=== PATIENT | female | born 1975 | race Caucasian/White ===

== ENCOUNTER 2016-07-27 12:28 | Emergency (ER) | payer OTHER ==
[2016-07-27] MEDS ORDERED: HYDROcodone/APAP 5/325 MG 1 TAB TABLET PO ONE (13:34)
[2016-07-27] MEDS ORDERED: FLUCONAZOLE 100 MG CAPSULE PO ONE ×2 (14:15→14:19)
--- NOTE | 2016-07-27 14:49 | ER PHYSICIAN DOCUMENTATION ---
Physician Documentation [facility] Name:Beatriz Solorio Age:41 yrs Sex:Female :1975 Arrival Date:07/27/2016 Time:12:28 Bed3 Private MD: Skip Chadwick Disposition: 07/27/16 14:13 Discharged to Home/Self Care. Impression: Candidal Vulvovaginitis, Pelvic Pain. - Condition is Good. - Discharge Instructions: PELVIC PAIN, Unknown Cause, VAGINITIS, Rose. - Prescriptions for Hydrocodone- Acetaminophen 5-325 mg Oral Tablet - take 1 tablet by ORAL route every 6 hours As needed; 20 tablet. - Medical Reconciliation form form. - Follow up: Private Physician; When: As needed; Reason: Worsening of condition. - Problem is new. - Symptoms have improved. HPI: 07/27 14:07 This 41 yrs old Female presents to ER via Private Vehicle with complaints of sc Pelvic Pain. 14:07 The patient presents with pelvic pain, vaginal bleeding that is light, spotting. Onset: sc The symptoms/episode began/occurred 1 month(s) ago. Modifying factors: the symptoms are aggravated by drive up from [place], one month s/p hysterectomy. Associated signs and symptoms: Pertinent positives: vaginal bleeding, vaginal discharge. Ectopic Risk: No risk factors noted. The patient is not sexually active. Historical: - Allergies: meloxicam; - Home Meds: 1. Lexapro Oral - PMHx: None; - PSHx: Hysterectomy; - Ebola Screening: : Patient negative for fever greater than or equal to 101.5 degrees Fahrenheit, and additional compatible Ebola Virus Disease symptoms. Patient denies exposure to infectious person. Patient denies travel to an Ebola-affected area in the 21 days before illness onset. No symptoms or risks identified at this time. . - Immunization history: Flu Vaccine < 1 year. - Social history: Smoking status: Patient states was never smoker of tobacco. Patient/guardian denies using alcohol, street drugs, IV drugs, marijuana. ROS: 14:08 Positive for pelvic pain, vaginal bleeding, vaginal discharge. sc 14:08 Constitutional: Negative for fever, chills, and weight loss. sc Eyes: Negative for injury, pain, redness, and discharge. ENT: Negative for injury, pain, and discharge. Neck: Negative for injury, pain, and swelling. Cardiovascular: Negative for chest pain, palpitations, and edema. Respiratory: Negative for shortness of breath, cough, wheezing, and pleuritic chest pain. Abdomen/GI: Negative for abdominal pain, nausea, vomiting, diarrhea, and constipation. Back: Negative for injury and pain. MS/Extremity: Negative for injury and deformity. Skin: Negative for injury, rash, and discoloration. 14:08 Neuro: Negative for headache, weakness, numbness, tingling, and seizure. Exam: Constitutional: This is a well developed, well nourished patient who is awake, alert, and in no acute distress. Head/Face: Normocephalic, atraumatic. Eyes: Pupils equal round and reactive to light, extra-ocular motions intact. Lids and lashes normal. Conjunctiva and sclera are non-icteric and not injected. Cornea within normal limits. Periorbital areas with no swelling, redness, or edema. Neck: Trachea midline, no thyromegaly or masses palpated, and no cervical lymphadenopathy. Supple, full range of motion without nuchal rigidity, or vertebral point tenderness. No meningismus. Chest/axilla: Normal chest wall appearance and motion. Nontender with no deformity. No lesions are appreciated. Cardiovascular: Regular rate and rhythm with a normal S1 and S2. No gallops, murmurs, or rubs. Normal PMI, no JVD. No pulse deficits. Respiratory: Lungs have equal breath sounds bilaterally, clear to auscultation and percussion. No rales, rhonchi or wheezes noted. No increased work of breathing, no retractions or nasal flaring. Back: No spinal tenderness. No costovertebral tenderness. Full range of motion. Skin: Warm, dry with normal turgor. Normal color with no rashes, no lesions, and no evidence of cellulitis. 14:09 Neuro: Awake and alert, GCS 15, oriented to person, place, time, and situation. sc Cranial nerves II-XII grossly intact. Motor strength 5/5 in all extremities. Sensory grossly intact. Cerebellar exam normal. Normal gait. 14:09 Abdomen/GI: Inspection: abdomen appears normal, Bowel sounds: normal, Palpation: abdomen is soft and non-tender. 14:09 : CVA tenderness, is absent, Pelvic Exam: Speculum exam: scant bleeding, no cervicitis, discharge, white. Vital Signs: 12:40 BP 112 / 79; Pulse 85; Resp 16; Temp 98.6; Pulse Ox 94% ; Weight 60.33 kg; Height 5 ft. jt 4 in. (162.56 cm); Pain 8/10; 13:58 BP 116 / 72; Pulse 76; Resp 16; Pulse Ox 94% on R/A; Pain 3/10; lc 14:30 Pain 3/10; lc 12:40 Body Mass Index 22.83 (60.33 kg, 162.56 cm) jt MDM: 12:35 Patient medically screened. sc 14:10 Differential diagnosis: rose infection, menometrorrhagia, urinary tract infection. ri Data reviewed: vital signs, nurses notes, lab test result(s), and as a result, I will discharge patient. Counseling: I had a detailed discussion with the patient and/or guardian regarding: the historical points, exam findings, and any diagnostic results supporting the discharge/admit diagnosis, lab results, the need for outpatient follow up, to return to the emergency department if symptoms worsen or persist or if there are any questions or concerns that arise at home. Physician consultation: Papo Jimenez MD was called at 14:12, was contacted at 14:12, regarding patient's condition. 07/27 13:37 Order name: WET PREP; Complete Time: 13:45 [facility] 07/27 12:54 Order name: Urine Dip; Complete Time: 13:23 ri Dispensed Medications: 13:23 Drug: HYDROcodone-acetaminophen 5 mg-325 mg 1 tabs; Route: PO; 13:57 Follow up: Response: Pain is decreased 14:08 Drug: Fluconazole 150 mg; Route: PO; 14:45 Follow up: Response: No adverse reaction Point of Care Testing: Urine Dip: 13:23 pH: 5; ; Specific [place]: 1.015; Ketones: Negative; Glucose: Negative; Protein: jt Negative; Leukocytes: Negative; Nitrite: Negative ; Blood: Negative; Bilirubin: Negative ; Urobilinogen: Normal Signatures: Siri Bazan RN RN Arlene Burnette RN RN [facility] Skip Vitale MD MD ri
--- NOTE | 2016-07-27 14:49 | ER NURSING DOCUMENTATION ---
Nurse's Notes [facility] Name:Beatriz Solorio Age:41 yrs Sex:Female :1975 Arrival Date:07/27/2016 Time:12:28 Bed3 Private MD: Diagnosis:Candidal Vulvovaginitis;Pelvic Pain Presentation: 07/27 12:30 Acuity: NICANOR 3 tg 12:36 Presenting complaint: Patient states: that she drove up from [facility] to and now sc1 is having pelvic pain. States she had a hysterectomy 1 month ago. States I'm having "a little bit of spotting", also. Transition of care: patient was not received from another setting of care. Notified ED Physician of patient's arrival and CC Dr. Vitale notified. 12:36 Method Of Arrival: Private Vehicle [facility] Triage Assessment: 12:38 General: Appears uncomfortable, well developed, well nourished, well groomed, Behavior sc1 is cooperative, pleasant. Pain: Complains of pain in suprapubic area, right inguinal area and left inguinal area. Historical: - Allergies: meloxicam; - Home Meds: 1. Lexapro Oral - PMHx: None; - PSHx: Hysterectomy; - Ebola Screening: : Patient negative for fever greater than or equal to 101.5 degrees Fahrenheit, and additional compatible Ebola Virus Disease symptoms. Patient denies exposure to infectious person. Patient denies travel to an Ebola-affected area in the 21 days before illness onset. No symptoms or risks identified at this time. . - Immunization history: Flu Vaccine < 1 year. - Social history: Smoking status: Patient states was never smoker of tobacco. Patient/guardian denies using alcohol, street drugs, IV drugs, marijuana. Screenin:39 Infectious Disease Risk None. Abuse screen: Denies threats or abuse. Nutritional ri1 screening: No deficits noted. Assessment: 14:46 GI: Abdomen is non- distended Bowel sounds present X 4 quads. Abd is soft Abdomen is lc tender to palpation in right lower quadrant. Vital Signs: 12:40 BP 112 / 79; Pulse 85; Resp 16; Temp 98.6; Pulse Ox 94% ; Weight 60.33 kg; Height 5 ft. jt 4 in. (162.56 cm); Pain 8/10; 13:58 BP 116 / 72; Pulse 76; Resp 16; Pulse Ox 94% on R/A; Pain 3/10; lc 14:30 Pain 3/10; lc 12:40 Body Mass Index 22.83 (60.33 kg, 162.56 cm) ED Course: 12:29 Patient arrived in ED. jt 12:30 Alek Noonan RN is Primary Nurse. tg 12:30 Triage completed. tg 12:34 Skip Vitale MD is Attending Physician. ri 12:36 Arlene Burnette RN is Primary Nurse. sc1 12:39 Notified ED Physician of patient's arrival and chief complaint. Dr. Vitale notified. sc1 Allergy Band Placed Arm band placed on Bed in low position Call Light in Reach Gowned HOB Elevated Side rails up x1. 13:00 Valuables Remains with patient Patient has correct armband on for positive lc identification. Placed in gown. Bed in low position. Call light in reach. Side rails up X 1. 13:30 Assist Provider Assist provider with pelvic exam: Set up pelvic tray. Performed by natalie Vitale MD Specimens sent to lab. Patient tolerated well. Administered Medications: 13:23 Drug: HYDROcodone-acetaminophen 5 mg-325 mg 1 tabs; Route: PO; 13:57 Follow up: Response: Pain is decreased 14:08 Drug: Fluconazole 150 mg; Route: PO; 14:45 Follow up: Response: No adverse reaction Point of Care Testing: Urine Dip: 13:23 pH: 5; ; Specific [place]: 1.015; Ketones: Negative; Glucose: Negative; Protein: jt Negative; Leukocytes: Negative; Nitrite: Negative ; Blood: Negative; Bilirubin: Negative ; Urobilinogen: Normal Outcome: 14:13 Discharge ordered by . ri 14:30 Discharged to home ambulatory, with friend. 14:30 Condition: stable 14:30 Discharge Assessment: Patient awake, alert and oriented x 3. No cognitive and/or functional deficits noted. Patient verbalized understanding of disposition instructions. 14:30 Discharge instructions given to patient, Instructed on discharge instructions, follow up and referral plans. medication usage, Demonstrated understanding of instructions, medications, Prescriptions given X 1. 14:48 Patient left the ED. 07/28 14:46 Discharge F/U Call: Unable to reach: no answer Signatures: Alek Noonan RN RN tg Siri Bazan, TANMAY RN Arlene Uriarte RN RN sc1 Skip Vitale MD MD sc Tennant, Joanne jt
== END 2016-07-27 14:49 | disposition home or self-care (01) ==
LOC: ER 12:28
DX: B37.3 Candidiasis of vulva and vagina (principal); Z98.890 Other specified postprocedural states
CPT/HCPCS: 87210; 99284

== ENCOUNTER 2016-08-21 12:13 | Emergency (ER) | payer OTHER ==
[2016-08-21] MEDS ORDERED: KETOROLAC TROMETHAMINE 30 MG/ML VIAL ONE (12:59)
[2016-08-21] MEDS ORDERED: ONDANSETRON ODT 4 MG TAB.RAPDIS ONE (13:00)
--- NOTE | 2016-08-21 13:22 | ER PHYSICIAN DOCUMENTATION ---
Physician Documentation [facility] Name:Beatriz Solorio Age:41 yrs Sex:Female :1975 Arrival Date:08/21/2016 Time:12:13 Bed3 Private MD: Chris Brown Disposition: 08/21 14:00 Chart complete. tl1 Disposition: 08/21/16 13:09 Discharged to Home/Self Care. Impression: Acute Back Pain. - Condition is Good. - Discharge Instructions: BACK PAIN (Acute or Chronic). - Prescriptions for Robaxin- 750 - take 1 tablet by ORAL route 3 times per day; 30 tablet. Encinal 7.5- 325 mg Oral Tablet - take 1 tablet by ORAL route every 6 hours As needed; 20 tablet. Zofran 4 mg Oral Tablet - take 1-2 tablet by ORAL route every 4-6 hours As needed; 10 tablet. - Medical Reconciliation form form. - Follow up: Private Physician; When: 4- 6 days; Reason: Recheck today's complaints, Continuance of care. - Problem is new. - Symptoms have improved. HPI: 12:30 This 41 yrs old Female presents to ER via Private Vehicle with complaints of tl1 Low Back Pain. 12:30 The patient presents with pain that is chronic. The symptoms are located in the low tl1 back. The pain radiates down both lower extremities, to lower buttocks. Onset: The symptoms/episode began/occurred gradually, 2 hour(s) ago. Modifying factors: the patient symptoms are aggravated by bending, movement. Associated signs and symptoms: Pertinent negatives: constipation, dysuria, fever, incontinence, numbness, tingling, urinary retention, weakness. Severity of symptoms: At their worst the symptoms were moderate, in the emergency department the symptoms are unchanged. The patient has experienced similar episodes in the past. She says she has a herniated disc treated with intermittent steroid injections. She reports that her insurance company allows the injections less frequently than she needs and it has been several months since her last one. She can't think of any particular precipitant this time. She lives in [facility] [address] and is up here visiting. Denies f/c/s/n/w/t/incontinence, h/o malignancy.. Historical: - Allergies: meloxicam; - Home Meds: 1. levothyroxine oral 2. Lexapro Oral 3. trazodone Oral - PMHx: chronic back pain; lumbar herniation; ARTHRITIS; ovarian cysts; - PSHx: Appendectomy; HYSTERECTOMY; - Tetanus: < 10 years. - Ebola Screening: : Patient negative for fever greater than or equal to 101.5 degrees Fahrenheit, and additional compatible Ebola Virus Disease symptoms. Patient denies exposure to infectious person. Patient denies travel to an Ebola-affected area in the 21 days before illness onset. No symptoms or risks identified at this time. . - Immunization history: Pneumococcal vaccine is not up to date, Patient has never been vaccinated Flu Vaccine < 1 year. - Social history: Smoking status: Patient states was never smoker of tobacco. Patient/guardian denies using alcohol, marijuana. ROS: 12:45 Back: Positive for decreased range of motion, pain at rest, Negative for injury or tl1 acute deformity. 12:45 All other systems are negative. Exam: 12:45 Constitutional: This is a well developed, well nourished patient who is awake, alert, tl1 and in no acute distress. 12:45 Head/Face: Normocephalic, atraumatic. tl1 12:45 Cardiovascular: Rate: normal. 12:45 Respiratory: Respirations: normal. 12:45 Abdomen/GI: Palpation: abdomen is soft and non-tender. 12:45 Back: pain, that is moderate, of the lumbar area, ROM is decreased, vertebral tenderness, is appreciated at L2, L3, L4 and L5, muscle spasm, is not present, Straight leg raises: right lower extremity illicits pain, at 30 degrees, left lower extremity illicits pain, at 30 degrees. 12:45 Skin: Exam negative for acute changes. 12:45 Neuro: Orientation: is normal, Mentation: is normal, Cranial nerves: grossly normal, Motor: moves all fours, strength is 5/5 in the right foot and left foot, Sensation: light touch sense is normal. Vital Signs: 12:43 BP 124 / 82; Pulse 121; Resp 16; Temp 97.8(O); Pulse Ox 95% on R/A; Weight 60.33 kg; sj Height 5 ft. 4 in. (162.56 cm); Pain 7/10; 13:20 Pain 1/10; sj 12:43 Body Mass Index 22.83 (60.33 kg, 162.56 cm) sj MDM: 12:39 Patient medically screened. tl1 13:00 Data reviewed: vital signs, nurses notes, and as a result, I will discharge patient. tl1 Counseling: I had a detailed discussion with the patient and/or guardian regarding: the historical points, exam findings, and any diagnostic results supporting the discharge/admit diagnosis, the need for outpatient follow up, to return to the emergency department if symptoms worsen or persist or if there are any questions or concerns that arise at home. Response to treatment: the patient's symptoms have markedly improved after treatment, and as a result, I will discharge patient. Dispensed Medications: 12:55 Drug: Dilaudid 2 mg; Route: IM; Site: right gluteus; sj 13:19 Follow up: Response: Pain is decreased sj 12:56 Drug: Toradol 30 mg; Route: IM; Site: left gluteus; sj 13:20 Follow up: Response: Pain is decreased sj 12:56 Drug: Zofran 4 mg; Route: PO; sj 13:20 Follow up: Response: Nausea is decreased sj Signatures: Chris Mancilla MD MD tl1 Nani Baeza
--- NOTE | 2016-08-21 13:22 | ER NURSING DOCUMENTATION ---
Nurse's Notes [facility] Name:Beatriz Solorio Age:41 yrs Sex:Female :1975 Arrival Date:08/21/2016 Time:12:13 Bed3 Private MD: Diagnosis:Acute Back Pain Presentation: 08/21 12:37 Presenting complaint:. Transition of care: patient was not received from another setting of care. Notified ED Physician of patient's arrival and CC Dr. Mancilla notified. 12:37 Acuity: NICANOR 3 sj 12:37 Acuity: NICANOR 4 sj 12:37 Method Of Arrival: Private Vehicle sj Triage Assessment: 12:42 General: Appears distressed, Behavior is cooperative. Pain: Complains of pain in lumbar sj area. Neuro: Level of Consciousness is awake, alert, Oriented to person, place, time, event, Reports paresthesias in bilateral upper thighs. Cardiovascular: Capillary refill < 3 seconds. Respiratory: Respiratory effort is even, unlabored, Respiratory pattern is regular. Historical: - Allergies: meloxicam; - Home Meds: 1. levothyroxine oral 2. Lexapro Oral 3. trazodone Oral - PMHx: chronic back pain; lumbar herniation; ARTHRITIS; ovarian cysts; - PSHx: Appendectomy; HYSTERECTOMY; - Tetanus: < 10 years. - Ebola Screening: : Patient negative for fever greater than or equal to 101.5 degrees Fahrenheit, and additional compatible Ebola Virus Disease symptoms. Patient denies exposure to infectious person. Patient denies travel to an Ebola-affected area in the 21 days before illness onset. No symptoms or risks identified at this time. . - Immunization history: Pneumococcal vaccine is not up to date, Patient has never been vaccinated Flu Vaccine < 1 year. - Social history: Smoking status: Patient states was never smoker of tobacco. Patient/guardian denies using alcohol, marijuana. Screenin:44 Infectious Disease Risk None. Abuse screen: Denies threats or abuse. Denies injuries sj from another. Nutritional screening: No deficits noted. Assessment: 12:44 Reassessment: No changes from previously documented assessment. sj Vital Signs: 12:43 BP 124 / 82; Pulse 121; Resp 16; Temp 97.8(O); Pulse Ox 95% on R/A; Weight 60.33 kg; sj Height 5 ft. 4 in. (162.56 cm); Pain 7/10; 13:20 Pain 1/10; sj 12:43 Body Mass Index 22.83 (60.33 kg, 162.56 cm) ED Course: 12:17 Patient arrived in ED. jl 12:37 Nani Baeza is Primary Nurse. sj 12:38 Triage completed. sj 12:39 Chris Mancilla MD is Attending Physician. tl1 12:44 Valuables Remains with patient Bed in low position. Call light in reach. Side rails up sj X 1. Administered Medications: 12:55 Drug: Dilaudid 2 mg; Route: IM; Site: right gluteus; sj 13:19 Follow up: Response: Pain is decreased sj 12:56 Drug: Toradol 30 mg; Route: IM; Site: left gluteus; sj 13:20 Follow up: Response: Pain is decreased sj 12:56 Drug: Zofran 4 mg; Route: PO; sj 13:20 Follow up: Response: Nausea is decreased Outcome: 13:09 Discharge ordered by . tl1 13:20 Discharged to home ambulatory, with family. sj 13:20 Condition: improved 13:20 Instructed on discharge instructions, follow up and referral plans. medication usage, Demonstrated understanding of instructions, medications, Prescriptions given X 3. 13:21 Patient left the ED. 08/22 09:21 Discharge F/U Call: Unable to reach: no answer st Signatures: Alethea Kirkland, RN RN Chris Sams MD MD tl1 Nani Baeza Jeff jl
== END 2016-08-21 13:22 | disposition home or self-care (01) ==
LOC: ER 12:13
DX: M54.5 Low back pain (principal); M79.604 Pain in right leg; M79.605 Pain in left leg; M51.26 Other intervertebral disc displacement, lumbar region; G89.29 Other chronic pain; Z79.899 Other long term (current) drug therapy
CPT/HCPCS: 96372; 99283; J1170; J1885

== ENCOUNTER 2016-09-07 18:46 | Emergency (ER) | payer OTHER ==
[2016-09-07] MEDS ORDERED: KETOROLAC TROMETHAMINE 30 MG/ML VIAL ONE (19:32)
[2016-09-07] MEDS ORDERED: ONDANSETRON HCL 4 MG/2 ML VIAL ONE (19:32)
[2016-09-07] MEDS ORDERED: MORPHINE SULFATE 4 MG/ML SYR ONE (19:32)
--- NOTE | 2016-09-07 20:03 | ER PHYSICIAN DOCUMENTATION ---
Physician Documentation [facility] Name:Beatriz Solorio Age:41 yrs Sex:Female :1975 Arrival Date:09/07/2016 Time:18:46 Bed3 Private MD: Romain Martinez Disposition: 09/07/16 19:55 Discharged to Home/Self Care. Impression: Pelvic Pain, Abdominal Pain, Right Lower Quadrant. - Condition is Good. - Discharge Instructions: PELVIC PAIN, Unknown Cause. - Prescriptions for ketorolac 10 mg Oral tablet - take 1 tablet by ORAL route every 6 hours not to exceed 40 mg in 24hrs; 30 tablet. - Medical Reconciliation form form. - Follow up: Papo Jimenez MD; When: 4- 6 days; Reason: Continuance of care. Follow up: Milton Sheriff MD; When: As needed; Reason: Continuance of care. - Problem is an ongoing problem. - Symptoms have improved. HPI: 09/07 19:22 This 41 yrs old Female presents to ER via Walk In with complaints of Pelvic jm Pain. 19:22 The patient presents with abdominal pain right lower quadrant. Onset: The jm symptoms/episode began/occurred 4 week(s) ago. The symptoms do not radiate. Associated signs and symptoms: Pertinent negatives: fever, nausea, vomiting. The symptoms are described as constant, sharp. Severity of pain: in the emergency department the pain is unchanged. This patient does not have any risk factors related to abdominal pain. The patient has experienced similar episodes in the past, and the symptoms today are exactly the same, to when the patient was apparently diagnosed with undifferentiated RLQ abd pain.. Pt's had this RLQ pain for a long while, but today it got worse, so she came in. Pt no longer has and appy, as this was taken out 1 month ago. They thought this would help her pain, but it persisted. No vaginal DC. 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 . Historical: - Allergies: meloxicam; - Home Meds: 1. levothyroxine oral 2. Lexapro Oral 3. trazodone Oral - Tetanus: < 10 years. - Ebola Screening: : Patient negative for fever greater than or equal to 101.5 degrees Fahrenheit, and additional compatible Ebola Virus Disease symptoms. Patient denies exposure to infectious person. Patient denies travel to an Ebola-affected area in the 21 days before illness onset. No symptoms or risks identified at this time. . - Immunization history: Flu Vaccine < 1 year. - Social history: Smoking status: Patient states was never smoker of tobacco. ROS: 20:00 Constitutional: Negative for fever. 20:00 Abdomen/GI: Positive for abdominal pain. 20:00 All other systems are negative. Exam: 20:00 Constitutional: The patient appears alert, awake. 20:00 Cardiovascular: Rate: normal, Rhythm: regular. 20:00 Respiratory: the patient does not display signs of respiratory distress, Respirations: normal. 20:00 Abdomen/GI: Bowel sounds: normal, Palpation: moderate abdominal tenderness, in the right lower quadrant. 20:00 Back: pain, is absent, CVA tenderness, is absent. 20:00 : CVA tenderness, is absent, Bladder: tenderness, is not appreciated. Vital Signs: 18:55 BP 141 / 92; Pulse 102; Resp 16; Temp 98.8(O); Pulse Ox 96% on R/A; Weight 62.6 kg (R); arc Height 5 ft. 4 in. (162.56 cm) (R); Pain 7/10; 20:02 BP 136 / 84; Pulse 88; Resp 18; Pulse Ox 96% on R/A; bw2 18:55 Body Mass Index 23.69 (62.60 kg, 162.56 cm) arc MDM: 18:49 Patient medically screened. 21:37 Differential diagnosis: ovarian disease. Data reviewed: vital signs, nurses notes, old medical records, and as a result, I will offer transfer vs DC home w f/u. . Test interpretation: by ED physician or midlevel provider: not applicable. Counseling: I had a detailed discussion with the patient and/or guardian regarding: the historical points, exam findings, and any diagnostic results supporting the discharge/admit diagnosis, the need for outpatient follow up, an OB/Gyne specialist. Medication response: The patient's symptoms have improved, ED course: Pt had lower R pelvic pain. I feel she needs US. I offered transfer for this, but after the meds her pain went away. Pt asked for pain meds for home. I gave her PO toradol. Pt told to f/u w OBGYN. . 09/07 19:14 Order name: Iv Saline Lock; Complete Time: 19:24 Dispensed Medications: 19:23 Drug: morphine 4 mg; Route: IVP; Site: left antecubital; 2 19:55 Follow up: Response: Pain is decreased bw2 19:23 Drug: Toradol 30 mg; Route: IVP; Site: left antecubital; 2 19:55 Follow up: Response: Pain is decreased [facility] 19:24 Drug: Zofran 4 mg; Route: IVP; Infused Over: 2 mins; Site: left antecubital; 2 19:56 Follow up: Response: Nausea is decreased 2 Point of Care Testing: Urine Dip: 19:00 pH: 6.0; ; Specific [place]: 1.015; Ketones: Negative; Glucose: Negative; Protein: arc Negative; Leukocytes: Negative; Nitrite: Negative ; Blood: Negative; Bilirubin: Negative ; Urobilinogen: Normal Signatures: Romain Patton MD MD jm Wisely, [facility]
--- NOTE | 2016-09-07 20:03 | ER NURSING DOCUMENTATION ---
Nurse's Notes [facility] Name:Beatriz Solorio Age:41 yrs Sex:Female :1975 Arrival Date:09/07/2016 Time:18:46 Bed3 Private MD: Diagnosis:Pelvic Pain;Abdominal Pain, Right Lower Quadrant Presentation: 09/07 19:01 Presenting complaint: Patient states: shes had abdominal pain x 4 months. pt states bw2 shes recently had a hysterectomy and appendix removed. Transition of care: patient was not received from another setting of care. 19:01 Method Of Arrival: Walk In [facility] 19:01 Acuity: NICANOR 3 bw2 Triage Assessment: 19:05 General: Appears in no apparent distress, Behavior is appropriate for age. Pain: bw2 Complains of pain in right sided abdominal pain. GI: Reports. Historical: - Allergies: meloxicam; - Home Meds: 1. levothyroxine oral 2. Lexapro Oral 3. trazodone Oral - Tetanus: < 10 years. - Ebola Screening: : Patient negative for fever greater than or equal to 101.5 degrees Fahrenheit, and additional compatible Ebola Virus Disease symptoms. Patient denies exposure to infectious person. Patient denies travel to an Ebola-affected area in the 21 days before illness onset. No symptoms or risks identified at this time. . - Immunization history: Flu Vaccine < 1 year. - Social history: Smoking status: Patient states was never smoker of tobacco. Screenin:06 Infectious Disease Risk None. Abuse screen: Denies threats or abuse. Nutritional bw2 screening: No deficits noted. Assessment: 19:06 See Triage Assessment done by same RN. GI: Abdomen is flat. bw2 Vital Signs: 18:55 BP 141 / 92; Pulse 102; Resp 16; Temp 98.8(O); Pulse Ox 96% on R/A; Weight 62.6 kg (R); arc Height 5 ft. 4 in. (162.56 cm) (R); Pain 7/10; 20:02 BP 136 / 84; Pulse 88; Resp 18; Pulse Ox 96% on R/A; bw2 18:55 Body Mass Index 23.69 (62.60 kg, 162.56 cm) arc ED Course: 18:47 Patient arrived in ED. jt 18:49 Romain Patton MD is Attending Physician. jm 19:01 Reena Aquino is Primary Nurse. bw2 19:04 Triage completed. bw2 19:06 Valuables Remains with patient Patient has correct armband on for positive bw2 identification. Placed in gown. Bed in low position. 19:21 Inserted peripheral IV: 20 gauge in left antecubital area and blood collected. [facility] 19:54 Papo Jimenez MD is Referral Physician. 19:54 Milton Sheriff MD is Referral Physician. Administered Medications: 19:23 Drug: morphine 4 mg; Route: IVP; Site: left antecubital; bw2 19:55 Follow up: Response: Pain is decreased bw2 19:23 Drug: Toradol 30 mg; Route: IVP; Site: left antecubital; bw2 19:55 Follow up: Response: Pain is decreased bw2 19:24 Drug: Zofran 4 mg; Route: IVP; Infused Over: 2 mins; Site: left antecubital; bw2 19:56 Follow up: Response: Nausea is decreased bw2 Point of Care Testing: Urine Dip: 19:00 pH: 6.0; ; Specific [place]: 1.015; Ketones: Negative; Glucose: Negative; Protein: arc Negative; Leukocytes: Negative; Nitrite: Negative ; Blood: Negative; Bilirubin: Negative ; Urobilinogen: Normal Outcome: 19:55 Discharge ordered by . 20:02 Discharged to home ambulatory. bw2 20:02 Discharged to home with friend. 20:02 Condition: good 20:02 Discharge Assessment: Patient awake, alert and oriented x 3. No cognitive and/or functional deficits noted. Patient verbalized understanding of disposition instructions. 20:02 Discharge instructions given to patient, Instructed on discharge instructions, follow up and referral plans. Demonstrated understanding of instructions, medications, Prescriptions given X 1. 20:03 Patient left the ED. bw2 Signatures: Romain Patton MD MD jm Chew, Amelia, Reg Reg arc Tennant, Joanne jt Wisely, Beth bw2
== END 2016-09-07 20:03 | disposition home or self-care (01) ==
LOC: ER 18:46
DX: R10.2 Pelvic and perineal pain (principal); R10.31 Right lower quadrant pain; Z79.899 Other long term (current) drug therapy
CPT/HCPCS: 96374; 96375; 99284; J1885; J2270; J2405

== ENCOUNTER 2016-09-26 19:51 | Emergency (ER) | payer OTHER ==
--- NOTE | 2016-09-26 20:36 | ER NURSING DOCUMENTATION ---
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 Presentation: 09/26 19:54 Acuity: NICANOR 3 bw2 19:59 Presenting complaint: Patient states: pt states she has chronic right lower abdominal bw2 pain. pt states that this is simular to her pain that she generally has. pt states that she is here for pain medications. Transition of care: Home. 19:59 Method Of Arrival: Walk In bw2 Triage Assessment: 20:01 General: Appears in no apparent distress, Behavior is appropriate for age, cooperative. bw2 Pain: Complains of pain in right lower abdominal Pain began chronic. Historical: - Allergies: meloxicam; - Home Meds: 1. levothyroxine oral 2. Lexapro Oral 3. trazodone Oral - Tetanus: < 10 years. - Ebola Screening: : Patient negative for fever greater than or equal to 101.5 degrees Fahrenheit, and additional compatible Ebola Virus Disease symptoms. Patient denies exposure to infectious person. Patient denies travel to an Ebola-affected area in the 21 days before illness onset. No symptoms or risks identified at this time. . - Immunization history: Flu Vaccine None. - Social history: Smoking status: Patient states was never smoker of tobacco. Screenin:04 Infectious Disease Risk None. Abuse screen: Denies threats or abuse. Nutritional bw2 screening: No deficits noted. Assessment: 20:03 See Triage Assessment done by same RN. GI: Abdomen is flat, Reports lower abdominal bw2 pain. Vital Signs: 20:02 BP 128 / 88; Pulse 84; Resp 18; Temp 98(O); Pulse Ox 96% on R/A; Weight 63.5 kg; Height bw2 5 ft. 4 in. (162.56 cm); Pain 7/10; 20:02 Body Mass Index 24.03 (63.50 kg, 162.56 cm) bw2 ED Course: 19:53 Patient arrived in ED. dp 19:54 Reena Aquino is Primary Nurse. bw2 19:54 Triage completed. bw2 20:03 Chris Mancilla MD is Attending Physician. tl1 20:04 Valuables Remains with patient Patient has correct armband on for positive bw2 identification. Administered Medications: 20:34 Drug: HYDROcodone-acetaminophen (5mg/325 mg) 1-2 tabs 1 tabs; Route: PO; bw2 20:34 Follow up: Response: Pharmacy closed - take home med pack bw2 20:34 Drug: Zofran 1 tablet; Route: PO; bw2 20:34 Follow up: Response: Pharmacy closed - take home med pack bw2 Outcome: 20:25 Discharge ordered by . tl1 20:35 Discharged to home ambulatory. bw2 20:35 Condition: good 20:35 Discharge Assessment: Patient awake, alert and oriented x 3. No cognitive and/or functional deficits noted. Patient verbalized understanding of disposition instructions. 20:35 Discharge instructions given to patient, Instructed on discharge instructions, follow up and referral plans. medication usage, Demonstrated understanding of Prescriptions given X 2. 20:35 Patient left the ED. bw2 09/27 13:04 Discharge F/U Call: Unable to reach: left voicemail: tg Signatures: Alek Noonan RN RN tg Leigh, Tom, MD MD tl1 Miles, Reena bw2 Lyndsay Van dp
--- NOTE | 2016-09-26 20:36 | ER PHYSICIAN DOCUMENTATION ---
Physician Documentation [facility] ([place], [place]) Name:Beatriz Solorio Age:41 yrs Sex:Female :1975 Arrival Date:09/26/2016 Time:19:51 Bed3 Private MD: Chris Brown Disposition: 09/26 21:00 Chart complete. tl1 Disposition: 09/26/16 20:25 Discharged to Home/Self Care. Impression: Pelvic Pain - due to ileoinguinal neuropathy.. - Condition is Good. - Discharge Instructions: PELVIC PAIN, Unknown Cause. - Prescriptions for [place] 5- 325 mg Oral - take 1 tablet by ORAL route every 6 hours As needed; 12 tablet. Zofran 4 mg Oral Tablet - take 1-2 tablet by ORAL route every 4-6 hours As needed; 10 tablet. - Medical Reconciliation form form. - Follow up: Private Physician; When: Date; Reason: Dr Fidencio Alex in [place] in 3-5 days. - Problem is new. - Symptoms have improved. HPI: 20:00 This 41 yrs old Female presents to ER via Walk In with complaints of tl1 Abdominal Pain, Lower - RIGHT. 20:00 The patient presents with abdominal pain right lower quadrant. She says she has had tl1 pelvic pain on the right for several months. She says prior doctors thought her pain was related to her appendix, and later her uterus, both of which she has had removed. 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 She says that pain is particularly bothersome the last several days, and she would like some pain medication until she can get some from Dr Alex, which apparently will require an office appointment. Of note, she has been seen here twice in the ED on 07/27 and 08/21, and prescribed [place]. She was seen here also on 09/07 and prescribed toradol. She has a [place] address, but says she is moving to . She says she works at the [employer] here in .. Historical: - Allergies: meloxicam; - Home Meds: 1. levothyroxine oral 2. Lexapro Oral 3. trazodone Oral - Tetanus: < 10 years. - Ebola Screening: : Patient negative for fever greater than or equal to 101.5 degrees Fahrenheit, and additional compatible Ebola Virus Disease symptoms. Patient denies exposure to infectious person. Patient denies travel to an Ebola-affected area in the 21 days before illness onset. No symptoms or risks identified at this time. . - Immunization history: Flu Vaccine None. - Social history: Smoking status: Patient states was never smoker of tobacco. ROS: 20:10 Abdomen/GI: Positive for abdominal pain. tl1 20:10 All other systems are negative. Exam: 20:10 Constitutional: This is a well developed, well nourished patient who is awake, alert, tl1 and in no acute distress. 20:10 Cardiovascular: Rate: normal. 20:10 Respiratory: Respirations: normal. 20:10 Abdomen/GI: Inspection: abdomen appears normal, Palpation: soft, mild abdominal tenderness, in the right right medial inguinal area.. Vital Signs: 20:02 BP 128 / 88; Pulse 84; Resp 18; Temp 98(O); Pulse Ox 96% on R/A; Weight 63.5 kg; Height bw2 5 ft. 4 in. (162.56 cm); Pain 7/10; 20:02 Body Mass Index 24.03 (63.50 kg, 162.56 cm) bw2 MDM: 20:03 Patient medically screened. tl1 20:40 Differential diagnosis: diverticulitis, Herpes Zoster, non-specific abd pain, tl1 Pyelonephritis, Ureterolithiasis, urinary tract infection, ovarian cyst, TOA, ovarian torsion. 21:00 Data reviewed: vital signs, nurses notes, old medical records, and as a result, I will tl1 discharge patient. Counseling: I had a detailed discussion with the patient and/or guardian regarding: the historical points, exam findings, and any diagnostic results supporting the discharge/admit diagnosis, the need for outpatient follow up, for definitive care, a painter ski edge. Response to treatment: the patient's symptoms have mildly improved after treatment. Special discussion: I discussed with the patient/guardian in detail that at this point there is no indication for admission to the hospital. It is understood, however, that if the symptoms persist or worsen the patient needs to return immediately for re-evaluation. Further emergent ED testing is not indicated at this point in time. I discussed with the patient/guardian in detail the need to arrange with the PCP or specialist further outpatient testing. ED course: No change. She was happy with the pre pack of vicodin and the prescription. I told her we would be unable to continue to provide pain medication for chronic pain from this ED. She understands. Dispensed Medications: 20:34 Drug: HYDROcodone-acetaminophen (5mg/325 mg) 1-2 tabs 1 tabs; Route: PO; bw2 20:34 Follow up: Response: Pharmacy closed - take home med pack bw2 20:34 Drug: Zofran 1 tablet; Route: PO; bw2 20:34 Follow up: Response: Pharmacy closed - take home med pack bw2 Signatures: Chris Mancilla MD MD tl1 Reena Aquino bw2
[2016-09-26] MEDS ORDERED: ONDANSETRON ODT PREPAC 4 MG TAB.RAPDIS PO ONE (20:45)
== END 2016-09-26 20:36 | disposition home or self-care (01) ==
LOC: ER 19:51
DX: R10.2 Pelvic and perineal pain (principal); R10.31 Right lower quadrant pain; G57.81 Other specified mononeuropathies of right lower limb; Z79.899 Other long term (current) drug therapy
CPT/HCPCS: 99283